=== PATIENT | male | born 1975 | race Caucasian/White ===

== ENCOUNTER 2017-08-11 22:33 | Emergency (ER) | payer MEDICAID ==
[~2017-08-11] VITALS: Ht 154.9 cm; Wt 63.5 kg
[2017-08-11 22:38] VITALS: BP 123/81
[2017-08-11] MEDS ORDERED: LIDOCAINE 1%, 10ML ONE (23:03)
[2017-08-11] MEDS ORDERED: CLINDAMYCIN 150 MG CAPSULE PO ONE (23:30)
[2017-08-11] MEDS ORDERED: LIDOCAINE 1%, 10ML SQ ONE (23:30)
[2017-08-12] MEDS ORDERED: CLINDAMYCIN 150 MG CAPSULE ONE (00:11)
== END 2017-08-12 00:37 | disposition home or self-care (01) ==
LOC: ED 22:56
DX: L03.311 Cellulitis of abdominal wall (principal)
CPT/HCPCS: 97597

== ENCOUNTER 2017-08-12 02:09 | Emergency (ER) | payer MEDICAID ==
[2017-08-12 02:13] VITALS: BP 132/92
[2017-08-12] MEDS ORDERED: HYDROcodone/APAP 5/325 TABLET PO ONE (03:00)
[2017-08-12 03:12] LABS: HEMATOCRIT 43.2 % (39.2-51.8); HEMOGLOBIN 14.4 g/dL (13.7-18.0); WHITE BLOOD COUNT 4.4 x10^3/uL (3.4-10)
[2017-08-12 03:24] LABS: ASPARTATE AMINO TRANSFERASE 17 U/L (15-37); BLOOD UREA NITROGEN 12 mg/dL (7-18)
[2017-08-12] MEDS ORDERED: HYDROcodone/APAP 5/325 TABLET ONE (03:24)
== END 2017-08-12 03:58 | disposition home or self-care (01) ==
LOC: ED 03:50
DX: R10.11 Right upper quadrant pain (principal); L02.211 Cutaneous abscess of abdominal wall
CPT/HCPCS: 36415; 80053; 85025; 99284

== ENCOUNTER 2018-03-11 01:06 | Emergency (ER) | payer MEDICAID ==
[~2018-03-11] VITALS: Ht 154.9 cm; Wt 61.3 kg
[2018-03-11 01:13] VITALS: BP 120/82
[2018-03-11] MEDS ORDERED: HYDROcodone/APAP 5/325 TABLET PO PRN (01:30)
[2018-03-11] MEDS ORDERED: HYDROcodone/APAP 5/325 TABLET ONE (01:47)
== END 2018-03-11 02:58 | disposition home or self-care (01) ==
LOC: ED 02:16
DX: S06.0X0A Concussion without loss of consciousness, initial encounter (principal); F17.200 Nicotine dependence, unspecified, uncomplicated; Y04.0XXA Assault by unarmed brawl or fight, initial encounter; Y93.89 Activity, other specified; Y92.89 Other specified places as the place of occurrence of the external cause; Y99.8 Other external cause status
CPT/HCPCS: 70450; 99284

== ENCOUNTER 2018-07-03 00:06 | Emergency (ER) | payer MEDICAID ==
[~2018-07-03] VITALS: Ht 154.9 cm; Wt 63.6 kg
[2018-07-03 00:08] VITALS: BP 155/111
[2018-07-03] MEDS ORDERED: HYDROmorphone 1 MG/ML, 1ML IM ONE (00:30)
[2018-07-03] MEDS ORDERED: HYDROmorphone 2 MG/ML, 1ML ONE (00:33)
[2018-07-03 00:45] LABS: BASOPHILS # (AUTO) 0.05 x10^3/uL (0-0.1); BASOPHILS % (AUTO) 1 % (0-1); EOSINOPHILS # (AUTO) 0.24 x10^3/uL (0-0.4); EOSINOPHILS % (AUTO) 5 % (1-7); LYMPHOCYTES # (AUTO) 2.62 x10^3/uL (1-3.4); LYMPHOCYTES % (AUTO) 52 % (22-44); MD NO; MEAN CORPUSCULAR HEMOGLOBIN 30.2 pg (27.5-34.5); MEAN CORPUSCULAR HGB CONC 33.8 g/dL (33.2-36.2); MEAN CORPUSCULAR VOLUME 89.4 fL (81-97); MEAN PLATELET VOLUME 8.2 fL (7.4-10.4); MONOCYTES # (AUTO) 0.34 x10^3/uL (0.2-0.8); MONOCYTES % (AUTO) 7 % (2-9); NEUTROPHILS # (AUTO) 1.81 x10^3/uL (1.8-6.8); NEUTROPHILS % (AUTO) 36 % (42-75); PLATELET COUNT 289 x10^3/uL (130-400); RED BLOOD COUNT 4.91 x10^6/uL (4.38-5.82); RED CELL DISTRIBUTION WIDTH 12.4 % (9.4-14.8)
[2018-07-03 00:52] LABS: ALANINE AMINOTRANSFERASE 32 U/L (12-78); ALBUMIN 3.1 g/dL (3.4-5.0); ANION GAP 6 mmol/L (5-15); CHLORIDE 109 mmol/L (98-107); CREATININE 0.97 mg/dL (0.7-1.3)
[2018-07-03 00:54] LABS: ALKALINE PHOSPHATASE 77 U/L (45-117); BILIRUBIN,TOTAL 0.6 mg/dL (0.2-1.0); TOTAL PROTEIN 6.7 g/dL (6.4-8.2)
== END 2018-07-03 01:55 | disposition home or self-care (01) ==
LOC: ED 00:25
DX: R10.84 Generalized abdominal pain (principal); F17.200 Nicotine dependence, unspecified, uncomplicated
CPT/HCPCS: 36415; 74176; 80053; 83690; 85025; 96372; 99285; J1170